=== PATIENT | female | born 1985 | race Caucasian/White ===

== ENCOUNTER 2018-03-17 19:12 | Emergency (ER) | payer MEDICARE, MEDICAID ==
[2018-03-17] MEDS ORDERED: Haloperidol Lactate 5 MG/ML VIAL ONE (19:46)
[2018-03-17] MEDS ORDERED: Lorazepam 2 MG/ML VIAL ONE (19:46)
[2018-03-17 21:30] LABS: Hemoglobin 13.2 g/dL (12.0-16.0); Mean Corpuscular HGB CONC 34.4 g/dL (32.0-36.0); Mean Corpuscular Hemoglobin 24.8 pg (27.0-31.0); Mean Corpuscular Volume 72.2 fL (78.0-98.0); Mean Platelet Volume 6.4 fL (7.4-10.4); Platelet Count 235 thou/uL (130-400); RBC Distribution Width 16.2 % (11.5-14.5); Red Blood Cell (RBC) Count 5.31 mill/uL (4.20-5.40)
[2018-03-17 21:41] LABS: ALT (SGPT) 125 U/L (8-55); AST (SGOT) 138 U/L (5-34); Acetaminophen Less than 6.0 mcg/mL (10.0-30.0); Albumin 3.3 g/dL (3.5-5.0); Alcohol Less than 10 mg/dL (Less than 10); Alkaline Phosphatase 138 U/L (40-150); Anion Gap 21 mmol/L (10-20); BUN (Urea Nitrogen) 80 mg/dL (7.0-18.7); Bilirubin, Total 0.8 mg/dL (0.2-1.2); Calc. Creatinine Clearance 0 mL/min (70-130); Calcium 9.2 mg/dL (7.8-10.44); Carbon Dioxide 14 mmol/L (22-29); Chloride 81 mmol/L (98-107); Estimated GFR-MDRD 23; Globulin 4.6 g/dL (2.4-3.5); Glucose 114 mg/dL (70-105); Potassium 5.2 mmol/L (3.5-5.1); Protein, Total 7.9 g/dL (6.0-8.3); Salicylate Less than 8.0 mg/dL (15.0-30.0)
[2018-03-17 21:48] LABS: Sodium 111 mmol/L (136-145)
[2018-03-17 21:54] LABS: Anisocytosis SLIGHT = 6-15 cells (100X) (0-5/hpf); Band 8 % (5-11); Dohle Bodies SLIGHT; Hypochromia SLIGHT = 6-15 cells (100X) (0-5/hpf); Lymphocytes 6 % (21-51); MDiff Complete? YES; Microcytosis SLIGHT = 6-15 cells (100X) (0-5/hpf); Monocytes 5 % (0-10); Neutrophil 81 % (42-75); PLT Morphology Comment 1; Toxic Granulation SLIGHT; Vacuoles SLIGHT
[2018-03-17 21:55] LABS: BHCG - Serum Negative (NEGATIVE); Pregs Control Background? CLEAR/WHITE (CLR/WHITE); Pregs Control Bar Appear? YES (CONTROL BAR)
[2018-03-18] MEDS ORDERED: Thiamine HCl 200 MG/2 ML VIAL ONE (00:23)
[2018-03-18 02:48] LABS: Anion Gap 17 mmol/L (10-20); BUN (Urea Nitrogen) 78 mg/dL (7.0-18.7); Calc. Creatinine Clearance 0 mL/min (70-130); Calcium 8.3 mg/dL (7.8-10.44); Carbon Dioxide 16 mmol/L (22-29); Chloride 88 mmol/L (98-107); Estimated GFR-MDRD 28; Glucose 97 mg/dL (70-105); Potassium 4.8 mmol/L (3.5-5.1)
[2018-03-18 02:49] LABS: Sodium 116 mmol/L (136-145)
[2018-03-18 03:01] LABS: Clarity Cloudy (Clear); Glucose, Urine (Dipstick) Negative (Negative); Leukocyte Small (Negative); Nitrite Negative (Negative); Protein, Urine (Dipstick) > or equal to 300 mg/dL (Neg-Trace); Specific Gravity, Urine 1.018 (1.002-1.036)
[2018-03-18 03:02] LABS: Bilirubin Negative (Negative); Blood, Urine Large (Negative); Urobilinogen 0.2 mg/dL (0.2-1.0)
[2018-03-18 03:08] LABS: RBC/HPF 21-50 HPF (0-3)
[2018-03-18 03:09] LABS: Bacteria/HPF 1+ HPF (None Seen); Other Microscopic Description FEW CLUE CELLS; Squamous Epithelial 0-3 HPF (0-3)
[2018-03-18 03:14] LABS: Cocaine Metabolite Screen Not Detected (NotDetected); Phencyclidine (PCP) Not Detected (NotDetected); THC/Cannabinoid Screen Detected (NotDetected)
[2018-03-18 03:15] LABS: Amphetamine Detected (NotDetected); Barbiturates Screen Not Detected (NotDetected); Benzodiazepine Screen Not Detected (NotDetected); Medtox Control Line Valid? VALID (VALID); Methadone Not Detected (NotDetected); Methamphetamine Detected (NotDetected); Opiate Screen Detected (NotDetected); Oxycodone Screen Not Detected (NotDetected); Tricyclic Screen Not Detected (NotDetected)
--- NOTE | 2018-03-18 19:57 | RAD ---
PORTABLE CHEST: Date: 03-18-18 FINDINGS: An AP portable film at 1146 shows a normal sized heart and clear lungs. No infiltrate or effusion was seen. There is no vascular congestion or edema. A right subclavian line is seen in place with tip in the vicinity of the right atrium. There is no sign of pneumothorax or pleural effusion. IMPRESSION: No acute thoracic findings POS: HOME
== END 2018-03-18 03:10 | disposition short-term general hospital (02) ==
LOC: BURERS 19:12
DX: E87.1 Hypo-osmolality and hyponatremia (principal); R94.5 Abnormal results of liver function studies; F19.10 Other psychoactive substance abuse, uncomplicated; K75.9 Inflammatory liver disease, unspecified; F20.9 Schizophrenia, unspecified; F17.210 Nicotine dependence, cigarettes, uncomplicated
CPT/HCPCS: 36415; 36556; 71045; 80048; 80053; 80306; 80307; 81003; 81015; 84443; 84484; 84703; 85025; 87040; 87149; 93005; 94760; 96361; 96372; 96374; J1630; J2060; J3411